=== PATIENT | male | born 1960 | race Caucasian/White ===

== ENCOUNTER 2019-07-04 17:01 | Emergency (ER) | payer OTHER ==
[2019-07-04 17:16] VITALS: BP 116/73; PULSE 100; TEMP 98.3; BMI 27.3
--- NOTE | 2019-07-04 17:19 | PDOC ---
Rapid Medical Evaluation Chief Complaint: Pain Time Seen by Provider: 07/04/19 17:09 Medical Evaluation: 07/04/19 17:15 I have performed a brief in-person evaluation of this patient. The patient presents with a chief complaint of: L elbow pain/redness/swelling x 2 days. No trauma or bite. Denies f/c. No h/o same. No h/o gout Pertinent physical exam findings:Posterior L elbow swollen w/ surrounding erythema and sig ttp. Pain w/ ROM I have ordered the following:labs/XR The patient will proceed to the ED for further evaluation. Discharge Disposition - Diagnosis Cellulitis of elbow - Referrals - Patient Instructions - Post Discharge Activity
[2019-07-04 20:21] LABS: BASO % 0.6 % (0-2.0); EOS % 1.5 % (0-4.5); HEMATOCRIT 38.6 % (35.4-49); HEMOGLOBIN 13.1 GM/dL (11.7-16.9); LYMPH % 17.6 % (8-40); MCH 31.5 pg (25.7-33.7); MCHC 33.9 g/dl (32.0-35.9); MEAN CELL VOLUME 92.7 fl (80-96); MONO % 8.6 % (3.8-10.2); NEUT % 71.7 % (42.8-82.8); PLATELET COUNT 312 K/MM3 (134-434); RBC 4.16 M/mm3 (4.00-5.60); RDW 13.4 % (11.9-15.9); WHITE BLOOD COUNT 12.7 K/mm3 (4.0-10.0)
[2019-07-04 20:51] LABS: ALBUMIN 4.1 g/dl (3.4-5.0); BILIRUBIN,TOTAL 1.4 mg/dL (0.2-1); BLOOD UREA NITROGEN 17.5 mg/dL (7-18); CALCIUM 9.3 mg/dL (8.5-10.1); POTASSIUM 4.4 mmol/L (3.5-5.1); TOT PROT 7.3 g/dl (6.4-8.2)
[2019-07-04] MEDS ORDERED: IBUPROFEN 600 MG TABLET (FP) PO ONE ×2 (21:41→22:22)
[2019-07-04] MEDS ORDERED: SULFAMETHOXAZOLE/TRIMETHOPRIM 800MG/160MG D.S. TABLET PO ONE (21:41)
--- NOTE | 2019-07-04 21:53 | PDOC ---
*Physical Exam - Vital Signs Last Vital Signs Temp Pulse Resp BP Pulse Ox 98.3 F 100 H 18 116/73 99 07/04/19 17:14 07/04/19 17:14 07/04/19 17:14 07/04/19 17:14 07/04/19 17:14 - Physical Exam Comments: 07/04/19 21:51 L elbow TTP with overlying erythema, swelling, palpable fluid over olecranon Full active ROM of the elbow with minimal pain distal pulses intact ED Treatment Course - LABORATORY CBC & Chemistry Diagram: 07/04/19 20:01 07/04/19 20:01 - ADDITIONAL ORDERS Additional order review: Laboratory Results 07/04/19 07/04/19 20:01 20:01 Sodium 138 Potassium 4.4 Chloride 104 Carbon Dioxide 27 Anion Gap 7 L BUN 17.5 Creatinine 1.0 Est GFR (CKD-EPI)AfAm 94.39 Est GFR (CKD-EPI)NonAf 81.44 Random Glucose 100 Calcium 9.3 Total Bilirubin 1.4 H AST 20 ALT 31 Alkaline Phosphatase 92 C-Reactive Protein 6.5 H Total Protein 7.3 Albumin 4.1 07/04/19 20:01 RBC 4.16 MCV 92.7 MCHC 33.9 RDW 13.4 MPV 7.0 L Neutrophils % 71.7 Lymphocytes % 17.6 Monocytes % 8.6 Eosinophils % 1.5 Basophils % 0.6 Medical Decision Making - Medical Decision Making 07/04/19 21:52 likely septic bursitis NSAIDS abx return precautions f/u pmd *DC/Admit/Observation/Transfer Diagnosis at time of Disposition: Cellulitis of elbow - Referrals - Patient Instructions - Post Discharge Activity
--- NOTE | 2019-07-04 22:16 | PDOC ---
History of Present Illness - General History Source: Patient Exam Limitations: No Limitations <James,Neha - Last Filed: 07/04/19 22:16> <Fish Sloan - Last Filed: 07/04/19 22:28> - General Chief Complaint: Pain Stated Complaint: ELBOW PAIN/SWELLING Time Seen by Provider: 07/04/19 17:09 Past History - Past Medical History COPD: No HTN: Yes - Suicide/Smoking/Psychosocial Hx Smoking History: Never smoked <JamesErikaLatosha - Last Filed: 07/04/19 22:16> <Fish Sloan - Last Filed: 07/04/19 22:28> - Past Medical History Allergies/Adverse Reactions: Allergies Allergy/AdvReac Type Severity Reaction Status Date / Time No Known Allergies Allergy Verified 07/04/19 17:16 Home Medications: Ambulatory Orders Sulfamethoxazole/Trimethoprim [Bactrim Ds -] 1 tab PO BID #28 tablet 07/04/19 *Physical Exam - Vital Signs Last Vital Signs Temp Pulse Resp BP Pulse Ox 98.3 F 100 H 18 116/73 99 07/04/19 17:14 07/04/19 17:14 07/04/19 17:14 07/04/19 17:14 07/04/19 17:14 - Physical Exam General Appearance: No: Apparent Distress Musculoskeletal: positive: Other (swelling and erythema overlying L elbow joint , over olecranon process, warm to touch, able to extend elbow and flex to 90 degrees) Integumentary: negative: Bruising Neurologic: positive: Alert, Normal Mood/Affect. negative: Numbness <James,Neha - Last Filed: 07/04/19 22:16> - Vital Signs Last Vital Signs Temp Pulse Resp BP Pulse Ox 98.3 F 100 H 18 116/73 99 07/04/19 17:14 07/04/19 17:14 07/04/19 17:14 07/04/19 17:14 07/04/19 17:14 <Fish Sloan - Last Filed: 07/04/19 22:28> ED Treatment Course - LABORATORY CBC & Chemistry Diagram: 07/04/19 20:01 07/04/19 20:01 - ADDITIONAL ORDERS Additional order review: Laboratory Results 07/04/19 07/04/19 20:01 20:01 Sodium 138 Potassium 4.4 Chloride 104 Carbon Dioxide 27 Anion Gap 7 L BUN 17.5 Creatinine 1.0 Est GFR (CKD-EPI)AfAm 94.39 Est GFR (CKD-EPI)NonAf 81.44 Random Glucose 100 Calcium 9.3 Total Bilirubin 1.4 H AST 20 ALT 31 Alkaline Phosphatase 92 C-Reactive Protein 6.5 H Total Protein 7.3 Albumin 4.1 07/04/19 20:01 RBC 4.16 MCV 92.7 MCHC 33.9 RDW 13.4 MPV 7.0 L Neutrophils % 71.7 Lymphocytes % 17.6 Monocytes % 8.6 Eosinophils % 1.5 Basophils % 0.6 <Latosha Ramirez - Last Filed: 07/04/19 22:16> - LABORATORY CBC & Chemistry Diagram: 07/04/19 20:01 07/04/19 20:01 - ADDITIONAL ORDERS Additional order review: Laboratory Results 07/04/19 07/04/19 20:01 20:01 Sodium 138 Potassium 4.4 Chloride 104 Carbon Dioxide 27 Anion Gap 7 L BUN 17.5 Creatinine 1.0 Est GFR (CKD-EPI)AfAm 94.39 Est GFR (CKD-EPI)NonAf 81.44 Random Glucose 100 Calcium 9.3 Total Bilirubin 1.4 H AST 20 ALT 31 Alkaline Phosphatase 92 C-Reactive Protein 6.5 H Total Protein 7.3 Albumin 4.1 07/04/19 20:01 RBC 4.16 MCV 92.7 MCHC 33.9 RDW 13.4 MPV 7.0 L Neutrophils % 71.7 Lymphocytes % 17.6 Monocytes % 8.6 Eosinophils % 1.5 Basophils % 0.6 <Fish Sloan - Last Filed: 07/04/19 22:28> Medical Decision Making - Medical Decision Making 58 y/o M with hx of HTN (only on losartan) presents with L elbow pain, redness and swelling x 3 days. Denies trauma, possible bite, recent travel/camping/ hiking, fever, numbness/tingling/weakness of extremities. 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 Patient has never had this before. Possible gout vs septic bursitis (more likely septic bursitis) L elbow xray unremarkable Given Motrin and Bactrim Return precautions discussed 07/04/19 22:16 <Latosha Ramirez - Last Filed: 07/04/19 22:16> *DC/Admit/Observation/Transfer - Discharge Dispostion Decision to Admit order: No <Latosha Ramirez - Last Filed: 07/04/19 22:16> - Attestations Physician Attestion: 07/04/19 22:28 I have reviewed the plan as documented and agree with current plan as documented. Electronically co-signed by Fish Sloan MD <Fish Sloan - Last Filed: 07/04/19 22:28> Diagnosis at time of Disposition: Septic olecranon bursitis of left elbow - Discharge Dispostion Disposition: HOME Condition at time of disposition: Stable - Prescriptions Prescriptions: Sulfamethoxazole/Trimethoprim [Bactrim Ds -] 1 tab PO BID #28 tablet - Patient Instructions Printed Discharge Instructions: DI for Elbow Bursitis Additional Instructions: Thank you for choosing [facility]. It was a pleasure taking care of you. You may take Motrin 600 mg every 6 hours by mouth as needed for mild to moderate pain. Take Motrin with food. Take antibiotics as prescribed Follow-up with your doctor in 2 days Return to the Emergency Department if your symptoms worsen or persist, you have fever, increased swelling/redness, streaking, decreased movement of elbow or other concerning symptoms.
[2019-07-04] MEDS ORDERED: SULFAMETHOXAZOLE/TRIMETHOPRIM 800MG/160MG D.S. TABLET ONE (22:22)
== END 2019-07-04 23:01 | disposition home or self-care (01) ==
LOC: JER 17:01
DX: M70.22 Olecranon bursitis, left elbow (principal); Y93.89 Activity, other specified
CPT/HCPCS: 36415; 73070-TC-LT-FY; 80053; 85025; 85651; 86140; 99283-25

== ENCOUNTER 2019-08-29 08:28 | Emergency (ER) | payer OTHER ==
[2019-08-29 08:36] VITALS: BP 129/89; PULSE 82; TEMP 97.5; BMI 30.2
[2019-08-29] MEDS ORDERED: IBUPROFEN 600 MG TABLET (FP) PO ONE ×2 (09:16→09:46)
--- NOTE | 2019-08-29 09:33 | PDOC ---
History of Present Illness - General Chief Complaint: Injury Stated Complaint: LT SHOULDER PAIN Time Seen by Provider: 08/29/19 09:03 History Source: Patient Exam Limitations: No Limitations Past History - Past Medical History Allergies/Adverse Reactions: Allergies Allergy/AdvReac Type Severity Reaction Status Date / Time No Known Allergies Allergy Verified 08/29/19 08:32 Home Medications: Ambulatory Orders Sulfamethoxazole/Trimethoprim [Bactrim Ds -] 1 tab PO BID #28 tablet 07/04/19 COPD: No HTN: Yes - Psycho Social/Smoking Cessation Hx Smoking History: Never smoked Information on smoking cessation initiated: No Hx Alcohol Use: No Drug/Substance Use Hx: No *Physical Exam - Vital Signs Last Vital Signs Temp Pulse Resp BP Pulse Ox 97.5 F L 82 18 129/89 98 08/29/19 08:30 08/29/19 08:30 08/29/19 08:30 08/29/19 08:30 08/29/19 08:30 - Physical Exam General Appearance: No: Apparent Distress Respiratory/Chest: positive: Lungs Clear, Normal Breath Sounds. negative: Respiratory Distress Cardiovascular: positive: Regular Rhythm, Regular Rate, S1, S2. negative: Murmur Musculoskeletal: positive: Decreased Range of Motion (of L shoulder), Other ( limited abduction, internal and external rotation of L shoulder, no joint deformity noted, no clavicular tenderness) Integumentary: negative: Swelling, Ecchymosis, Bruising Neurologic: positive: Alert, Normal Mood/Affect ED Treatment Course - RADIOLOGY Radiology Studies Ordered: Category Date Time Status SHOULDER-LEFT [RAD] Stat Radiology 08/29/19 09:16 Taken Medical Decision Making - Medical Decision Making 58 y/o M with hx of HTN presents with L shoulder injury from yesterday. Mentions was holding onto railing with L shoulder while in truck and was getting out, when due to slippery surface, felt a jerk in his L shoulder. Did not take anything for pain yesterday. Denies fall. Denies fever, URI sxs, sob, cp, numbness/tingling/weakness of arms. Plan: L shoulder xray, Motrin 08/29/19 09:29 L shoulder xray shows L AC joint arthropathy, no AC joint separation noted, no other acute abnormality noted Possible rotator cuff injury Will refer to ortho Stable for dc 08/29/19 09:38 Discharge - Discharge Information Problems reviewed: Yes Clinical Impression/Diagnosis: Injury of left shoulder Qualifiers: Encounter type: initial encounter Qualified Code(s): S49.92XA - Unspecified injury of left shoulder and upper arm, initial encounter Condition: Stable Disposition: HOME - Admission No - Additional Discharge Information Prescription Drug Monitoring Program (I-STOP) results: I-STOP not reviewed - Follow up/Referral Referrals: Suleman Dior DO [Staff Physician] - 2 Days - Patient Discharge Instructions Patient Printed Discharge Instructions: DI for Rotator Cuff Injury Additional Instructions: Thank you for choosing [facility]. It was a pleasure taking care of you. Possibly you have rotator cuff injury This will likely require physical therapy Take Motrin 600 mg every 6 hours as needed for pain You were referred to orthopedics for further evaluation Return to the Emergency Department if your symptoms worsen or persist or have other concerning symptoms. - Post Discharge Activity
== END 2019-08-29 09:51 | disposition home or self-care (01) ==
LOC: JERFT 08:28
DX: S49.92XA Unspecified injury of left shoulder and upper arm, initial encounter (principal); X58.XXXA Exposure to other specified factors, initial encounter; Y93.89 Activity, other specified; Y92.89 Other specified places as the place of occurrence of the external cause; I10 Essential (primary) hypertension
CPT/HCPCS: 73030-TC-LT-FY; 99281-25

== ENCOUNTER 2020-11-22 10:20 | Emergency (ER) | payer OTHER ==
[2020-11-22 11:03] VITALS: BP 123/85; PULSE 73; TEMP 98; BMI 25.4
[2020-11-22] MEDS ORDERED: AMPICILLIN NA/SULBACTAM NA 3 GM in SODIUM CHLORIDE 100 ML IVPB ONE (11:49)
[2020-11-22] MEDS ORDERED: DIPHTH,PERTUSS(ACELL),TET 0.5 ML DISP.SYRIN IM ONE ×2 (12:00→12:07)
[2020-11-22 12:36] LABS: BASO % 0.2 % (0-2.0); EOS % 1.5 % (0-4.5); HEMATOCRIT 42.7 % (35.4-49); HEMOGLOBIN 14.3 GM/dL (11.7-16.9); LYMPH % 19.7 % (8-40); MCH 30.9 pg (25.7-33.7); MCHC 33.5 g/dl (32.0-35.9); MEAN CELL VOLUME 92.1 fl (80-96); MONO % 8.6 % (3.8-10.2); PLATELET COUNT 328 K/MM3 (134-434); RBC 4.64 M/mm3 (4.00-5.60); RDW 13.5 % (11.9-15.9); WHITE BLOOD COUNT 11.2 K/mm3 (4.0-10.0)
[2020-11-22 13:05] LABS: POTASSIUM 4.2 mmol/L (3.5-5.1)
[2020-11-22 13:07] LABS: CALCIUM 9.7 mg/dL (8.5-10.1)
[2020-11-22 13:08] LABS: ALBUMIN 4.4 g/dl (3.4-5.0); BLOOD UREA NITROGEN 17.7 mg/dL (7-18)
[2020-11-22 13:10] LABS: CREATININE 0.9 mg/dL (0.55-1.3)
[2020-11-22 13:13] LABS: BILIRUBIN,TOTAL 1.3 mg/dL (0.2-1); TOT PROT 7.7 g/dl (6.4-8.2)
[2020-11-22] MEDS ORDERED: ACETAMINOPHEN 325 MG TABLET (FP) ONE (15:26)
== END 2020-11-22 13:37 | disposition left against medical advice (07) ==
LOC: JERFT 10:20
PROC: 3E03329 Introduction of Other Anti-infective into Peripheral Vein, Percutaneous Approach (ICD-10-PCS; principal; 2020-11-22)
PROC: 3E033NZ Introduction of Analgesics, Hypnotics, Sedatives into Peripheral Vein, Percutaneous Approach (ICD-10-PCS; 2020-11-22)
PROC: 3E0234Z Introduction of Serum, Toxoid and Vaccine into Muscle, Percutaneous Approach (ICD-10-PCS; 2020-11-22)
DX: L03.011 Cellulitis of right finger (principal)
CPT/HCPCS: 36415; 73130-TC-RT-FY; 80053; 85025; 87040; 90715; 99285-25

== ENCOUNTER 2020-11-22 17:52 | Inpatient (IN) | payer OTHER ==
[2020-11-22] MEDS ORDERED: AMPICILLIN NA/SULBACTAM NA 1.5 GM in SODIUM CHLORIDE 100 ML IVPB ONE (20:05)
[2020-11-22] MEDS ORDERED: VANCOMYCIN 1 GM in D5W (PRE-DOCKED) 1,000 MG/250 ML IVPB ONE (20:05)
[2020-11-22] MEDS ORDERED: ACETAMINOPHEN 1000 MG/100 ML VIAL (NON FORMULARY) IVPB ONE (20:05)
[2020-11-22] MEDS ORDERED: AMPICILLIN NA/SULBACTAM NA 3 GM in SODIUM CHLORIDE 100 ML IVPB ONE (20:07)
[2020-11-22] MEDS ORDERED: ACETAMINOPHEN INJECTION 100 ML IVPB ONE (20:20)
[2020-11-22] MEDS ORDERED: VANCOMYCIN 1 GRAM (PRE-DOCKED) 1,000 MG/250 ML BAG IVPB ONE (20:21)
[2020-11-22] MEDS ORDERED: LACTATED RINGERS SOLUTION 1000 ML INFUS.BAG IV ONE (20:27)
[2020-11-23 01:18] VITALS: BMI 27.1
[2020-11-23] MEDS: CEFAZOLIN 1 GM/D5W 1 GM/50 ML BAG IVPB SCH ×2 (01:18→10:39)
[2020-11-23] MEDS ORDERED: ACETAMINOPHEN 1000 MG/100 ML VIAL (NON FORMULARY) IVPB PRN (04:00)
[2020-11-23 09:07] LABS: BASO % 1.2 % (0-2.0); HEMATOCRIT 35.8 % (35.4-49); HEMOGLOBIN 11.9 GM/dl (11.7-16.9); LYMPH % 18.5 % (8-40); MCH 30.2 pg (25.7-33.7); MCHC 33.2 g/dl (32.0-35.9); MEAN CELL VOLUME 91.1 fl (80-96); MEAN PLT VOLUME 8.4 fl (7.5-11.1); MONO % 10.9 % (3.8-10.2); NEUT % 67.4 % (42.8-82.8); PLATELET COUNT 265 K/MM3 (134-434); RBC 3.93 M/mm3 (4.00-5.60); RDW 12.5 % (11.9-15.9)
[2020-11-23 09:16] LABS: CALCIUM 8.7 mg/dl (8.5-10); CREATININE 0.8 mg/dl (0.55-1.3); POTASSIUM 4.3 mmol/L (3.5-5.1)
[2020-11-23] MEDS: ASPIRIN COATED 81 MG TABLET.EC PO SCH (10:39)
[2020-11-23] MEDS: metoPROLOL SUCCINATE 25 MG TAB.SR.24H (FP) PO SCH (10:39)
[2020-11-23] MEDS: ENOXAPARIN NA (PORCINE) 40 MG/0.4 ML DISP.SYRIN SQ SCH (10:39)
[2020-11-23] MEDS: TAMSULOSIN HCL 0.4 MG CAP PO SCH (10:40)
[2020-11-23] MEDS: LOSARTAN POTASSIUM 50 MG TABLET PO SCH (10:40)
[2020-11-23] MEDS: ATORVASTATIN CA 80 MG TABLET (FP) PO SCH (21:22)
[2020-11-24] MEDS: CEFAZOLIN 1 GM/D5W 1 GM/50 ML BAG IVPB SCH ×3 (01:22→18:38)
[2020-11-24] MEDS: LOSARTAN POTASSIUM 50 MG TABLET PO SCH (09:18)
[2020-11-24] MEDS: TAMSULOSIN HCL 0.4 MG CAP PO SCH (09:18)
[2020-11-24] MEDS: metoPROLOL SUCCINATE 25 MG TAB.SR.24H (FP) PO SCH (09:18)
[2020-11-24] MEDS: ENOXAPARIN NA (PORCINE) 40 MG/0.4 ML DISP.SYRIN SQ SCH (09:18)
[2020-11-24] MEDS: ASPIRIN COATED 81 MG TABLET.EC PO SCH (09:18)
[2020-11-24 09:29] LABS: HEMATOCRIT 35.2 % (35.4-49); HEMOGLOBIN 11.6 GM/dl (11.7-16.9); MCH 30.2 pg (25.7-33.7); MEAN CELL VOLUME 91.6 fl (80-96); MEAN PLT VOLUME 8.2 fl (7.5-11.1); PLATELET COUNT 275 K/MM3 (134-434); RBC 3.84 M/mm3 (4.00-5.60); RDW 12.6 % (11.9-15.9); WHITE BLOOD COUNT 8.4 K/mm3 (4.0-10.8)
[2020-11-24] MEDS: ATORVASTATIN CA 80 MG TABLET (FP) PO SCH (21:05)
[2020-11-25] MEDS: CEFAZOLIN 1 GM/D5W 1 GM/50 ML BAG IVPB SCH ×4 (02:00→19:01)
[2020-11-25] MEDS: ASPIRIN COATED 81 MG TABLET.EC PO SCH (09:12)
[2020-11-25] MEDS: metoPROLOL SUCCINATE 25 MG TAB.SR.24H (FP) PO SCH (09:12)
[2020-11-25] MEDS: TAMSULOSIN HCL 0.4 MG CAP PO SCH (09:12)
[2020-11-25] MEDS: ENOXAPARIN NA (PORCINE) 40 MG/0.4 ML DISP.SYRIN SQ SCH (09:13)
[2020-11-25] MEDS: LOSARTAN POTASSIUM 50 MG TABLET PO SCH (09:13)
[2020-11-25] MEDS: ATORVASTATIN CA 80 MG TABLET (FP) PO SCH (21:36)
[2020-11-26] MEDS: CEFAZOLIN 1 GM/D5W 1 GM/50 ML BAG IVPB SCH ×2 (01:37→10:00)
[2020-11-26 01:58] VITALS: TEMP 98
[2020-11-26 06:51] VITALS: BP 105/71; PULSE 71
[2020-11-26] MEDS: TAMSULOSIN HCL 0.4 MG CAP PO SCH (09:28)
[2020-11-26] MEDS: LOSARTAN POTASSIUM 50 MG TABLET PO SCH (09:28)
[2020-11-26] MEDS: ASPIRIN COATED 81 MG TABLET.EC PO SCH (09:28)
[2020-11-26] MEDS: metoPROLOL SUCCINATE 25 MG TAB.SR.24H (FP) PO SCH (09:28)
[2020-11-26] MEDS: ENOXAPARIN NA (PORCINE) 40 MG/0.4 ML DISP.SYRIN SQ SCH (09:28)
== END 2020-11-26 12:20 | disposition home or self-care (01) | DRG 383 ==
LOC: JER 17:52 → JERBED 20:36 → FM/S 11-23 00:21
PROVIDERS: ADMIT Internal Medicine; ATTEND Nurse Practitioner Acute Care
DX: L03.011 Cellulitis of right finger (principal); S61.011A Laceration without foreign body of right thumb without damage to nail, initial encounter; I10 Essential (primary) hypertension; E78.5 Hyperlipidemia, unspecified; I25.10 Atherosclerotic heart disease of native coronary artery without angina pectoris; N40.0 Benign prostatic hyperplasia without lower urinary tract symptoms; W26.0XXA Contact with knife, initial encounter; Y93.89 Activity, other specified; Y92.89 Other specified places as the place of occurrence of the external cause; Y99.8 Other external cause status
CPT/HCPCS: 36415; 71046-TC-FY; 73140-TC-RT-FY; 80048; 83735; 85025; 85027; 87070; 87186; 87205; 93005; 93010; 99285-25; C9803; J0131; U0003

== ENCOUNTER 2021-07-21 18:53 | Emergency (ER) | payer OTHER ==
[2021-07-21 19:07] VITALS: BP 133/85; PULSE 94; TEMP 102; BMI 25.4
== END 2021-07-21 20:09 | disposition home or self-care (01) ==
LOC: JER 18:53 → JCOVINFU 18:53 → JER 20:09
DX: R50.9 Fever, unspecified (principal); R09.81 Nasal congestion; Z11.52 Encounter for screening for COVID-19
CPT/HCPCS: 99283-25; C9803; U0003; U0005

== ENCOUNTER → 2021-09-24 | Emergency (ER) | payer OTHER ==
[2021-09-24 13:29] VITALS: BP 119/78; PULSE 93; TEMP 98.5; BMI 25.4
== END | disposition left against medical advice (07) ==
LOC: JCOVINFU 13:20
DX: U07.1 COVID-19 (principal)
CPT/HCPCS: 99281-25

== ENCOUNTER 2021-10-14 12:54 | Emergency (ER) | payer OTHER ==
[2021-10-14 13:12] VITALS: BP 102/80; PULSE 80; TEMP 99.9; BMI 19.2
[2021-10-14] MEDS ORDERED: KETOROLAC TROMETHAMINE 30 MG/1 ML VIAL IM ONE (13:59)
[2021-10-14] MEDS ORDERED: KETOROLAC TROMETHAMINE 30 MG/1 ML VIAL ONE (15:34)
== END 2021-10-14 17:30 | disposition home or self-care (01) ==
LOC: JER 12:54
PROC: 3E023GC Introduction of Other Therapeutic Substance into Muscle, Percutaneous Approach (ICD-10-PCS; principal; 2021-10-14)
DX: M54.50 Low back pain, unspecified (principal)
CPT/HCPCS: 72100-TC-FY; 93971-TC; 99284-25

== ENCOUNTER 2022-09-28 22:14 | Inpatient (IN) | payer OTHER ==
[2022-09-28 22:20] VITALS: BMI 25.8
[2022-09-28] MEDS ORDERED: ACETAMINOPHEN 1000 MG/100 ML BAG IVPB ONE (23:41)
[2022-09-28] MEDS ORDERED: ACETAMINOPHEN INJECTION 100 ML IVPB ONE (23:53)
[2022-09-29 00:37] LABS: HEMATOCRIT 26.9 % (35.4-49); HEMOGLOBIN 8.8 GM/dL (11.7-16.9); MCH 29.9 pg (25.7-33.7); MCHC 32.9 g/dl (32.0-35.9); MEAN CELL VOLUME 90.8 fl (80-96); MEAN PLT VOLUME 7.4 fl (7.5-11.1); PLATELET COUNT 283 10^3/uL (134-434); RBC 2.96 M/mm3 (4.00-5.60); RDW 14.2 % (11.9-15.9); WHITE BLOOD COUNT 17.8 K/mm3 (4.0-10.0)
[2022-09-29] MEDS ORDERED: IBUPROFEN 600 MG TABLET (FP) PO ONE ×2 (00:42→00:48)
[2022-09-29 00:58] LABS: CALCIUM 9.5 mg/dL (8.5-10.1)
[2022-09-29 00:59] LABS: ALBUMIN 3.8 g/dl (3.4-5.0); BLOOD UREA NITROGEN 54.7 mg/dL (7-18)
[2022-09-29 01:02] LABS: CREATININE 3.7 mg/dL (0.55-1.3)
[2022-09-29 01:04] LABS: BILIRUBIN,TOTAL 0.8 mg/dL (0.2-1); TOT PROT 7.5 g/dl (6.4-8.2)
[2022-09-29] MEDS ORDERED: LIDOCAINE HCL 2% JELLY 11 ML TP ONE (02:20)
[2022-09-29 02:47] LABS: EPI CELLS 2 /uL (0-25.1); HYALINE CASTS 1 /uL (0-3.1); URINE APPEARANCE CLOUDY; URINE BACTERIA 1822 /uL (0-1359); URINE BILIRUBIN NEGATIVE (NEGATIVE); URINE COLOR YELLOW; URINE GLUCOSE (UA) NEGATIVE (NEGATIVE); URINE KETONE NEGATIVE (NEGATIVE); URINE LEUK ESTERASE 3+ (NEGATIVE); URINE NITRITE NEGATIVE (NEGATIVE); URINE PROTEIN NEGATIVE (NEGATIVE); URINE RBC 11 /uL (0-23.9); URINE UROBILINOGEN 0.2 mg/dL (0.2-1.0); URINE WBC 1571 /uL (0-25.8)
[2022-09-29] MEDS ORDERED: CEFTRIAXONE 1,000 MG in DEXTROSE 5%-WATER - 50 ML IVPB ONE (03:28)
[2022-09-29 03:59] LABS: ANISOCYTOSIS 1+; MACROCYTOSIS 0; OVALOCYTE 1+
[2022-09-29] MEDS ORDERED: CEFTRIAXONE 1 GM/50 ML BAG ONE (04:32)
[2022-09-29 10:14] VITALS: TEMP 98.6
[2022-09-29] MEDS ORDERED: NITROGLYCERIN SUBLINGUAL 1/150 0.4 MG TAB SL PRN (11:33)
[2022-09-29] MEDS ORDERED: ACETAMINOPHEN 325 MG TABLET (FP) PO PRN (11:43)
[2022-09-29] MEDS ORDERED: SODIUM CHLORIDE 1,000 ML IV SCH (11:45)
[2022-09-29] MEDS ORDERED: ASPIRIN 81 MG CHEWABLE TABLETS ONE (13:44)
[2022-09-29] MEDS ORDERED: metoPROLOL SUCCINATE 25 MG TAB.SR.24H (FP) PO ONE (13:44)
[2022-09-29 13:47] VITALS: BP 125/70; PULSE 67; RESP 20
[2022-09-29] MEDS ORDERED: METHOCARBAMOL 500 MG TABLET PO SCH (14:00)
[2022-09-30] MEDS ORDERED: TAMSULOSIN HCL 0.4 MG CAP PO SCH (08:30)
[2022-09-30] MEDS ORDERED: ASPIRIN COATED 81 MG TABLET.EC PO SCH (10:00)
[2022-09-30] MEDS ORDERED: CEFTRIAXONE 1 GM in DEXTROSE 5%-WATER - 50 ML IVPB SCH (10:00)
[2022-09-30] MEDS ORDERED: metoPROLOL SUCCINATE 25 MG TAB.SR.24H (FP) PO SCH (10:00)
[2022-09-30] MEDS ORDERED: LOSARTAN POTASSIUM 50 MG TABLET PO SCH (10:00)
[2022-09-30] MEDS ORDERED: ATORVASTATIN CA 80 MG TABLET (FP) PO SCH (22:00)
== END 2022-09-29 14:20 | disposition left against medical advice (07) | DRG 466 ==
LOC: JER 22:14 → JERBED 09-29 03:22
PROVIDERS: ADMIT Internal Medicine; ATTEND Internal Medicine
DX: T83.511A Infection and inflammatory reaction due to indwelling urethral catheter, initial encounter (principal); I25.10 Atherosclerotic heart disease of native coronary artery without angina pectoris; C61 Malignant neoplasm of prostate; R11.2 Nausea with vomiting, unspecified; E78.5 Hyperlipidemia, unspecified; I12.9 Hypertensive chronic kidney disease with stage 1 through stage 4 chronic kidney disease, or unspecified chronic kidney disease; D72.829 Elevated white blood cell count, unspecified; N18.9 Chronic kidney disease, unspecified; Y92.89 Other specified places as the place of occurrence of the external cause; Z95.5 Presence of coronary angioplasty implant and graft
CPT/HCPCS: 0241U-QW; 36415; 71046-TC-FY; 80053; 81003; 84484; 85025; 87086; 93005; 93010; 99285-25

== ENCOUNTER 2023-11-25 17:43 | Emergency (ER) | payer OTHER ==
[2023-11-25 17:50] VITALS: RESP 18
[2023-11-25] MEDS ORDERED: SODIUM CHLORIDE 1,000 ML IV STA (19:05)
[2023-11-25] MEDS ORDERED: ONDANSETRON 4 MG/2 ML VIAL IVPUSH ONE (19:05)
[2023-11-25] MEDS ORDERED: KETOROLAC TROMETHAMINE 15 MG/ML VIAL IVPUSH ONE (19:05)
[2023-11-25] MEDS ORDERED: KETOROLAC TROMETHAMINE 15 MG/ML VIAL ONE (19:29)
[2023-11-25] MEDS ORDERED: ONDANSETRON 4 MG/2 ML VIAL ONE (19:29)
[2023-11-25 19:58] LABS: VENOUS PCO2 45.8 mmHg (38-52); VENOUS PH 7.366 (7.310-7.410)
[2023-11-25 19:59] LABS: HEMATOCRIT 31.4 % (35.4-49); HEMOGLOBIN 10.5 GM/dL (11.7-16.9); MCH 30.6 pg (25.7-33.7); MCHC 33.5 g/dl (32.0-35.9); MEAN CELL VOLUME 91.4 fl (80-96); MEAN PLT VOLUME 7.8 fl (7.5-11.1); PLATELET COUNT 199 10^3/uL (134-434); RBC 3.44 M/mm3 (4.00-5.60); RDW 14.3 % (11.9-15.9); WHITE BLOOD COUNT 8.4 K/mm3 (4.0-10.0)
[2023-11-25] MEDS ORDERED: LIDOCAINE HCL 2% JELLY 10 ML CARTRIDGE UR ONE (20:06)
[2023-11-25 20:07] LABS: INR 1.1 (0.83-1.09); PROTHROMBIN TIME (PATIENT) 12.7 SEC (9.7-13.0)
[2023-11-25] MEDS ORDERED: LIDOCAINE HCL 2% JELLY 11 ML TP ONE (20:07)
[2023-11-25 20:09] LABS: ACTIVATED PTT 24.6 SECONDS (25.2-36.5)
[2023-11-25] MEDS ORDERED: VANCOMYCIN/WATER 1250 MG 1,250 MG/250 ML BAG IVPB ONE ×2 (20:13→21:01)
[2023-11-25] MEDS ORDERED: CEFEPIME HCL 1 GM VIAL (RESTRICTED TO ID) IVPB ONE (20:14)
[2023-11-25 20:15] LABS: CHLORIDE 101 mmol/L (98-107); SODIUM 131 mmol/L (136-145)
[2023-11-25 20:16] LABS: CALCIUM 8.3 mg/dL (8.5-10.1)
[2023-11-25 20:17] LABS: ALBUMIN 3.3 g/dl (3.4-5.0); BLOOD UREA NITROGEN 34.6 mg/dL (7-18); CO2 23 mmol/L (21-32); GLUCOSE,RANDOM 120 mg/dL (74-106)
[2023-11-25 20:20] LABS: CREATININE 3.5 mg/dL (0.55-1.3); SGOT/AST 58 U/L (15-37); SGPT/ALT 22 U/L (13-61)
[2023-11-25 20:22] LABS: BILIRUBIN,TOTAL 0.9 mg/dL (0.2-1); TOT PROT 7.3 g/dl (6.4-8.2)
[2023-11-25 20:23] LABS: ALK PHOS 82 U/L (45-117)
[2023-11-25 20:28] LABS: ANION GAP 6 mmol/L (4-13); POTASSIUM 6.7 mmol/L (3.5-5.1)
[2023-11-25] MEDS ORDERED: CEFEPIME 1 GM/100 ML BAG IVPB ONE (20:33)
[2023-11-25 20:34] LABS: ANISOCYTOSIS 0; MACROCYTOSIS 0; OVALOCYTE 1+; TEAR DROP CELLS 1+
[2023-11-25 20:40] LABS: PLATELET ESTIMATE ADEQUATE
[2023-11-25 20:41] LABS: EPI CELLS 4 /uL (0-25.1); HYALINE CASTS 1 /uL (0-3.1); URINE APPEARANCE CLOUDY; URINE BACTERIA 6980 /uL (0-1359); URINE BILIRUBIN NEGATIVE (NEGATIVE); URINE COLOR YELLOW; URINE GLUCOSE (UA) NEGATIVE (NEGATIVE); URINE KETONE NEGATIVE (NEGATIVE); URINE LEUK ESTERASE 2+ (NEGATIVE); URINE NITRITE NEGATIVE (NEGATIVE); URINE PROTEIN 2+ (NEGATIVE); URINE RBC 29 /uL (0-23.9); URINE UROBILINOGEN 0.2 mg/dL (0.2-1.0); URINE WBC 358 /uL (0-25.8)
[2023-11-25] MEDS ORDERED: SULFAMETHOXAZOLE/TRIMETHOPRIM 800MG/160MG D.S. TABLET PO ONE (20:56)
[2023-11-25] MEDS ORDERED: SULFAMETHOXAZOLE/TRIMETHOPRIM 800MG/160MG D.S. TABLET ONE (21:01)
[2023-11-25] MEDS ORDERED: ACETAMINOPHEN 325 MG TABLET (FP) ONE (21:28)
[2023-11-25 21:45] LABS: POTASSIUM 3.6 mmol/L (3.5-5.1)
[2023-11-25 21:47] LABS: CALCIUM 7.9 mg/dL (8.5-10.1)
[2023-11-25 21:51] LABS: CREATININE 3.4 mg/dL (0.55-1.3)
[2023-11-25 21:52] LABS: EPI CELLS 3 /uL (0-25.1); HYALINE CASTS 1 /uL (0-3.1); URINE APPEARANCE CLOUDY; URINE BACTERIA 2818 /uL (0-1359); URINE BILIRUBIN NEGATIVE (NEGATIVE); URINE COLOR YELLOW; URINE GLUCOSE (UA) NEGATIVE (NEGATIVE); URINE KETONE NEGATIVE (NEGATIVE); URINE LEUK ESTERASE 1+ (NEGATIVE); URINE NITRITE NEGATIVE (NEGATIVE); URINE PROTEIN 2+ (NEGATIVE); URINE UROBILINOGEN 0.2 mg/dL (0.2-1.0); URINE WBC 232 /uL (0-25.8)
[2023-11-25] MEDS ORDERED: ACETAMINOPHEN 325 MG TABLET (FP) PO ONE (22:17)
[2023-11-25 22:50] LABS: URINE RBC 753.6 /uL (0-23.9)
[2023-11-25 23:04] VITALS: BP 101/54; PULSE 85; TEMP 98.7
== END 2023-11-25 23:59 | disposition home or self-care (01) ==
LOC: JER 17:43
PROC: 3E03329 Introduction of Other Anti-infective into Peripheral Vein, Percutaneous Approach (ICD-10-PCS; principal; 2023-11-25)
PROC: 3E03329 Introduction of Other Anti-infective into Peripheral Vein, Percutaneous Approach (ICD-10-PCS; 2023-11-25)
PROC: 3E0337Z Introduction of Electrolytic and Water Balance Substance into Peripheral Vein, Percutaneous Approach (ICD-10-PCS; 2023-11-25)
DX: N39.0 Urinary tract infection, site not specified (principal); J10.1 Influenza due to other identified influenza virus with other respiratory manifestations; R53.83 Other fatigue; R05.9 Cough, unspecified; R11.2 Nausea with vomiting, unspecified; R00.0 Tachycardia, unspecified; Z20.822 Contact with and (suspected) exposure to COVID-19
CPT/HCPCS: 0241U-QW; 36415; 71046-TC-FY; 80048; 80053; 81003; 82803; 83605; 84484; 85025; 85610; 85730; 87040; 87086; 93005; 93010; 99285-25

== ENCOUNTER 2023-12-28 19:36 | Emergency (ER) | payer OTHER ==
[2023-12-28 19:42] VITALS: BP 143/84; PULSE 70; RESP 16; TEMP 97.7; BMI 27.1
[2023-12-28] MEDS ORDERED: LIDOCAINE HCL 2% JELLY 11 ML TP ONE (19:57)
== END 2023-12-28 20:25 | disposition home or self-care (01) ==
LOC: JER 19:36
PROC: 0T2BX0Z Change Drainage Device in Bladder, External Approach (ICD-10-PCS; principal; 2023-12-28)
DX: Z46.6 Encounter for fitting and adjustment of urinary device (principal)
CPT/HCPCS: 99283-25

== ENCOUNTER 2024-02-01 19:51 | Emergency (ER) | payer OTHER ==
[2024-02-01 20:03] VITALS: BP 130/80; PULSE 80; RESP 18; TEMP 98.1; BMI 27.3
[2024-02-01] MEDS ORDERED: LIDOCAINE HCL 2% JELLY 11 ML TP ONE (20:20)
[2024-02-01] MEDS: LIDOCAINE HCL 2% JELLY 10 ML CARTRIDGE PR ONE (20:39)
== END 2024-02-01 21:12 | disposition home or self-care (01) ==
LOC: JER 19:51
PROC: 0T2BX0Z Change Drainage Device in Bladder, External Approach (ICD-10-PCS; principal; 2024-02-01)
DX: Z46.6 Encounter for fitting and adjustment of urinary device (principal)
CPT/HCPCS: 99283-25

== ENCOUNTER 2024-03-07 19:55 | Emergency (ER) | payer MEDICARE, OTHER ==
[2024-03-07 20:04] VITALS: BP 124/79; PULSE 77; RESP 18; TEMP 98.6; BMI 27.1
[2024-03-07] MEDS ORDERED: LIDOCAINE HCL 2% JELLY 11 ML TP ONE (20:21)
[2024-03-07 21:05] LABS: EPI CELLS 2 /uL (0-25.1); HYALINE CASTS 0 /uL (0-3.1); URINE APPEARANCE CLEAR; URINE BACTERIA 476 /uL (0-1359); URINE BILIRUBIN NEGATIVE (NEGATIVE); URINE COLOR YELLOW; URINE GLUCOSE (UA) NEGATIVE (NEGATIVE); URINE KETONE NEGATIVE (NEGATIVE); URINE LEUK ESTERASE 2+ (NEGATIVE); URINE NITRITE NEGATIVE (NEGATIVE); URINE PROTEIN TRACE (NEGATIVE); URINE RBC 58 /uL (0-23.9); URINE UROBILINOGEN 0.2 mg/dL (0.2-1.0); URINE WBC 252 /uL (0-25.8)
== END 2024-03-07 21:28 | disposition left against medical advice (07) ==
LOC: JER 19:55
PROC: 0T2BX0Z Change Drainage Device in Bladder, External Approach (ICD-10-PCS; principal; 2024-03-07)
DX: T83.091A Other mechanical complication of indwelling urethral catheter, initial encounter (principal)
CPT/HCPCS: 81003; 87086; 87186; 99283-25

== ENCOUNTER 2024-04-06 20:52 | Emergency (ER) | payer MEDICARE ==
[2024-04-06 21:04] VITALS: BP 147/83; PULSE 92; RESP 18; TEMP 98.5; BMI 27.1
[2024-04-06] MEDS ORDERED: LIDOCAINE HCL 2% JELLY 11 ML TP ONE (21:15)
== END 2024-04-06 21:35 | disposition home or self-care (01) ==
LOC: JER 20:52
PROC: 0T9B70Z Drainage of Bladder with Drainage Device, Via Natural or Artificial Opening (ICD-10-PCS; principal; 2024-04-06)
DX: C61 Malignant neoplasm of prostate (principal)
CPT/HCPCS: 51702; 99283-25

== ENCOUNTER 2024-05-23 20:45 | Emergency (ER) | payer MEDICARE ==
[2024-05-23 20:49] VITALS: BP 136/88; PULSE 84; RESP 18; TEMP 98.1; BMI 25.8
[2024-05-23] MEDS ORDERED: LIDOCAINE HCL 2% JELLY 11 ML TP ONE (21:14)
== END 2024-05-23 22:47 | disposition left against medical advice (07) ==
LOC: JER 20:45
PROC: 0T9B70Z Drainage of Bladder with Drainage Device, Via Natural or Artificial Opening (ICD-10-PCS; principal; 2024-05-23)
DX: Z46.6 Encounter for fitting and adjustment of urinary device (principal)
CPT/HCPCS: 99283-25

== ENCOUNTER 2024-07-11 19:02 | Emergency (ER) | payer MEDICARE, OTHER ==
[2024-07-11 19:10] VITALS: BP 124/85; PULSE 87; RESP 14; TEMP 98.8; BMI 31.9
[2024-07-11] MEDS ORDERED: LIDOCAINE HCL 2% JELLY 11 ML TP ONE (19:35)
== END 2024-07-11 19:55 | disposition home or self-care (01) ==
LOC: JER 19:02
PROC: 0T2BX0Z Change Drainage Device in Bladder, External Approach (ICD-10-PCS; principal; 2024-07-11)
DX: Z46.6 Encounter for fitting and adjustment of urinary device (principal)
CPT/HCPCS: 99283-25

== ENCOUNTER 2024-11-02 19:34 | Emergency (ER) | payer OTHER ==
[2024-11-02 19:38] VITALS: BP 111/75; PULSE 81; RESP 20; TEMP 98.2; BMI 27.1
[2024-11-02] MEDS ORDERED: predniSONE 20 MG TABLET (UD) ONE (20:51)
[2024-11-02] MEDS ORDERED: ACETAMINOPHEN 500 MG TABLET (FP) ONE (20:51)
[2024-11-02] MEDS: ACETAMINOPHEN 500 MG TABLET (FP) PO ONE (20:53)
[2024-11-02] MEDS: predniSONE 20 MG TABLET (UD) PO ONE (20:53)
== END 2024-11-02 20:53 | disposition home or self-care (01) ==
LOC: JERFT 19:34
DX: M19.042 Primary osteoarthritis, left hand (principal)
CPT/HCPCS: 73130-TC-LT-FY; 99283-25